=== PATIENT | female | born 1980 | race Hispanic/Latino ===

== ENCOUNTER 2017-07-18 13:24 | Emergency (ER) | payer BC, MEDICAID ==
[~2017-07-18 13:24] MED LIST: ISOVUE-370 76%-LOCM 1 ML ONE; Iopamidol 370 76% 50 ML VIAL FS ONE
[2017-07-18 13:50] LABS: #Lymphocytes 0.4 thou/uL (1.20-3.40); #Monocytes 0.2 thou/uL (0.11-0.59); #Neutrophils 6.6 thou/uL (1.40-6.50); %Eosinophils 0.2 % (0.0-10.0); %Lymphocytes 5.5 % (21.0-51.0); %Monocytes 3.2 % (0.0-10.0); Hematocrit 41.2 % (36.0-47.0); Mean Platelet Volume 7.5 fL (7.4-10.4); Red Blood Cell (RBC) Count 4.96 mill/uL (4.20-5.40); White Blood Cell (WBC) Count 7.2 thou/uL (4.8-10.8)
[2017-07-18] MEDS ORDERED: Ondansetron HCl/PF 4 MG/2 ML Vial ONE (14:00)
[2017-07-18] MEDS ORDERED: Morphine 4 MG/ML VIAL ONE (14:00)
[2017-07-18 14:18] LABS: ALT (SGPT) 23 U/L (8-55); AST (SGOT) 26 U/L (5-34); Alkaline Phosphatase 40 U/L (40-150); Anion Gap 13 mmol/L (10-20); BUN (Urea Nitrogen) 15 mg/dL (7.0-18.7); Bilirubin, Total 0.6 mg/dL (0.2-1.2); Calc. Creatinine Clearance 0 mL/min (70-130); Calcium 8.5 mg/dL (7.8-10.44); Carbon Dioxide 22 mmol/L (22-29); Chloride 104 mmol/L (98-107); Estimated GFR-MDRD Greater than 90; Globulin 3.2 g/dL (2.4-3.5); Lipase 25 U/L (8-78); Protein, Total 7.4 g/dL (6.0-8.3)
[2017-07-18 14:22] LABS: Bilirubin Negative (Negative); Blood, Urine Negative (Negative); Glucose, Urine (Dipstick) >=1000 mg/dL (Negative); Ketone, Urine 40 mg/dL (Negative); Nitrite Negative (Negative); Protein, Urine (Dipstick) Negative (Neg-Trace); Urobilinogen 0.2 mg/dL (0.2-1.0)
--- NOTE | 2017-07-18 16:32 | CT ---
CONTRAST ENHANCED CT IMAGES ABDOMEN AND PELVIS 07/18/17 HISTORY: Abdominal pain. Contrast enhanced CT images of the abdomen and pelvis demonstrate the lung bases to be unremarkable. No evidence of free intraperitoneal air is seen. The liver, spleen, gallbladder, pancreas, adrenal glands and kidneys are unremarkable. No evidence of periaortic lymphadenopathy is seen. A large amount of stool was see in the colon. No evidence of bow el obstruction or ileus is seen. The right inferior uterine wall has an approximately 2.4 cm area of heterogeneity possibly representing a uterine fibroid. The right ovary is not visualized. The left ov sabina contains a cyst or cystic lesion. Diameter measuring approximately 2.7 x 3.0 x 2.5 cm. IMPRESSION: Left ovarian cyst or cystic lesion, otherwise unremarkable CT abdomen and pelvis. POS: [facility]
--- NOTE | 2017-07-18 18:24 | ULT ---
TRANSABDOMINAL AND TRANSVAGINAL PELVIC ULTRASOUND 07/18/17 PROVIDED CLINICAL HISTORY: Pelvic pain. FINDINGS: Correlation is made with CT examination of 07/18/17. The uterus measures about 9.3 x 4.5 x 6.4 cm and demonstrate a circumscribed focus of altered echogenicity involving the uterine myometrium measuring about 2.7 cm compatible with a fibroid. The right ovary is no distinctly identified. there is nonspecific prominence of the uterine endometri um which may be related to physiologic changes. There is a 4.2 cm left ovarian cyst which appears sim ple in nature. Color doppler and spectral analysis of the left ovarian waveform demonstrates normal f low. There is no evident for free pelvic fluid. IMPRESSION: Simple appearing left adnexal cyst, presumably physiologic though given its size, followup pelvic ul trasound in 6 to 12 weeks is recommended. POS: [facility]NA
== END 2017-07-18 18:57 | disposition home or self-care (01) ==
LOC: ERS 13:24
DX: N83.202 Unspecified ovarian cyst, left side (principal); E11.9 Type 2 diabetes mellitus without complications; Z79.84 Long term (current) use of oral hypoglycemic drugs
CPT/HCPCS: 74177; 76856; 80053; 81003; 81025; 83690; 85025; 96361; 96374; 96375; J2270; J2405

== ENCOUNTER 2020-10-03 12:22 | Outpatient (CLI) | payer OTHER | END 2020-10-03 12:23 | disposition home or self-care (01) | LOC: BICMAMMO 12:22 | PROVIDERS: ATTEND Family Medicine | DX: Z12.31 Encounter for screening mammogram for malignant neoplasm of breast (principal) | CPT/HCPCS: 77067 ==

== ENCOUNTER 2022-06-07 07:44 | Outpatient (CLI) | payer OTHER | END 2022-06-07 07:45 | disposition home or self-care (01) | LOC: ULT 07:44 | PROVIDERS: ATTEND Family Medicine | DX: R79.89 Other specified abnormal findings of blood chemistry (principal); K76.0 Fatty (change of) liver, not elsewhere classified | CPT/HCPCS: 76705 ==

== ENCOUNTER 2022-08-06 08:19 | Outpatient (CLI) | payer OTHER | END 2022-08-06 08:20 | disposition home or self-care (01) | LOC: BICMAMMO 08:19 | PROVIDERS: ATTEND Family Medicine | DX: Z12.31 Encounter for screening mammogram for malignant neoplasm of breast (principal) | CPT/HCPCS: 77063; 77067 ==

== ENCOUNTER 2022-11-26 08:36 | Outpatient (CLI) | payer OTHER | END 2022-11-26 08:37 | disposition home or self-care (01) | LOC: BICULT 08:36 | PROVIDERS: ATTEND Family Medicine | DX: M79.89 Other specified soft tissue disorders (principal) | CPT/HCPCS: 76999 ==